=== PATIENT | female | born 1970 | race Caucasian/White ===

== ENCOUNTER 2017-01-27 14:50 | Emergency (ER) | payer BC ==
[~2017-01-27] VITALS: Ht 157.5 cm; Wt 76.7 kg
[~2017-01-27 14:50] MED LIST: BACTRIM DS 8001 TA1 PO; CIPROFLOXACIN500 MG PO; FIORICET 325 MG1 TAB PO; FLEXERIL10 M1 PO; LORTAB 5/500 501 TAB PO; PERCOCET 5/3251 EACH PO; PHENERGAN 25MG.25 M1 PO; PREMARIN1.25 MG PO; VICODIN 7.5/501 EACH PO; ZOFRAN ODT4 MG PO
[2017-01-27] MEDS ORDERED: FLONASE 50 MCG16 GM (15:16)
[2017-01-27] MEDS ORDERED: PREDNISONE 20MG20 MG PO (15:16)
[2017-01-27] MEDS ORDERED: DOXYCYCLINE HY100 M4 PO (15:16)
[2017-01-27 15:17] VITALS: BP 146/96
--- NOTE | 2017-01-27 15:17 | [facility] Report ---
History of Present Issue Date/Time Seen by Provider 01/27/17 1500 Visit Reason Pt arrived:Walked Presenting Problem:PT STATES HEAD CONGESTION, EAR PAIN AND HOARSENESS THAT BEGAN ON MONDAY Location if Accident: Onset of symptoms date/time:/ or onset unknown for:MEDICAL HX UNKNOWN Have you (or family members/close friends) recently traveled outside the [place]? N If Yes, where/when: Have you had exposure to infectious disease within the past month? TB? Other? Specify: c/o head congestion. Symptoms started w/ scratchy ears over one week ago. Head congestion and ear pressure started several days later on Monday, 6 days ago. Since then, each day symptoms have been worse and more symptoms each day. Now rhinorrhea, nasal congestion, ear pressure, headaches, sinus pressure, hoarse and mild cough. 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 No fevers. Does report a hx of borderline BP at beginning and end of each school year. reports her and Dr. Stoner have been monitoring it. Typically stress related and over summer break, BP normal. pt works as a director within the school system. Source patient Exam Limitations no limitations ALLERGIES Coded Allergies: Penicillins (01/27/17) codeine (01/27/17) morphine (01/27/17) Home Medications Reported Medications Conjugated Estrogens (Premarin) 1 TAB PO DAILY History Medical History General CAD? No Angina: No [place]: No Hypertension? Yes Hyperlipidemia? No CHF? No DVT? No PE? No COPD? No Asthma? No Anemia? No GERD? No Gastric ulcers? No GI Bleed? No Hernia? No Thyroid Problems? No Hypothyroidism? No CVA? No Seizures? No Diabetes? No Renal Insuffiency? No UTI? Yes Stones? No BPH? No GB Disease: No Nephritic Syndrome? No Asplenia? No Hepatitis? No Sickle Cell Disease? No Arthritis? No Migraines? No Cataracts? No Glaucoma? No MRSA? No HIV? No TB? No Anxiety? No Depression? No Cancer? No Immunization HX DT/Tetanus > 10 YRS Flu LAST YEAR Pneumonia NEVER Surgical Hx Previous Surgery?Y X 2 D&C X2 LT. KNEE REPAIR BREAST REDUCTION WISDOM TEETH LT OVARY/FALLOPIAN TUBE HYSTERECTOMY 2010 Family History Family HX Diabetes No CAD Yes Hypertension Yes Hyperlipidemia No Cancer Yes TB No Social History Smoking Hx Smoker: Never Smoker Tobacco: No Packs/day N/A Alcohol Alcohol: No Review of Systems All Other Systems Reviewed and Negative Constitutional see HPI, malaise Eyes denies drainage ENT see HPI. denies: ear discharge, throat swelling. Respiratory see HPI, denies shortness of breath, denies wheezing Cardiovascular denies chest pain Gastrointestinal denies no symptoms reported Skin denies lesions, denies lumps, denies rash Psychiatric/Neurological headache ("primarily pressure") Physical Exam Vital Signs Vital Signs Date Time Temp Pulse Resp B/P Pulse O2 O2 Flow FiO2 Ox Delivery Rate 01/27 1517 97.9 87 20 146/96 100 01/27 1458 97.9 87 20 146/96 100 General Appearance normal appearance, no apparent distress Eye Exam - bilateral eye normal exam Ear, Nose, Throat nasal congestion, indu EACs normal, indu TMs normal except serous fluid causing mild TM bulging bilaterally, turbinates swollen, moderate maxillary sinus pressure bilaterally, mild frontal sinus pressure, thick purulent nasal drainage Neck non-tender, supple Respiratory Status No: respiratory distress, productive cough, non productive cough. Lung Sounds anterior: lungs clear. posterior: lungs clear. bilateral: lungs clear. Cardiovascular regular rate/rhythm, no peripheral edema, no murmur Neurologic alert, oriented x 3 Skin normal color, warm/dry Lymphatic no adenopathy Medical Decision Making LABS/Meds/Orders Pt receiving controlled substance in ED? No Departure Departure Time of Disposition 1513 Disposition DC Home or Self Care(routine) Clinical Impression Primary Impression: Acute sinusitis Qualifiers: Sinusitis location: maxillary Recurrence: non-recurrent Qualified Code: J01.00 - Acute maxillary sinusitis, unspecified Condition STABLE Referrals Georgiana CARLTON,Ricardo (Family) IMMEDIATELY for new or worsening symptoms OR no noticeable improvement over the next 48-72 hours. 911 for difficulty breathing or swallowing. Patient Instructions DI for Sinusitis Additional Instructions * Start antibiotic and be sure to take as ordered for the FULL length of time even if you feel better. Sinus infections do not get better overnight. It may take 2-3 days to notice much improvement so be sure to use conservative measures as discussed for symptoms. * OK to continue Sudafed but monitor your Blood pressure as it can cause it to elevate more. * Start steroid today. Helps with inflammation therefore, cough and pressure. Follow directions on package. Rvwd side effects. Pt reports they have taken them before. * Flonase 2 sprays each nostril daily to help with nasal congestion, sinus and ear pressure/inflammation * Lots of fluids * Sleep elevated * Humidifier/vaporizer Discharge Counseling Counseled pt/family regarding diagnosis, medications/RX, home care, follow up needs Prescriptions Current Visit Scripts Doxycycline Hyclate (Vibramycin) 100 MG PO BID #20 CAP Prednisone (Prednisone 20MG) 20 MG PO BID #8 TAB Fluticasone Propionate (Flonase 50 Mcg Nasal [place]) 2 SPRAY NA DAILY #1 BOT at 1546
== END 2017-01-27 15:19 | disposition home or self-care (01) ==
LOC: UTC 14:50
DX: J01.00 Acute maxillary sinusitis, unspecified (principal); I10 Essential (primary) hypertension; Z79.890 Hormone replacement therapy; Z88.5 Allergy status to narcotic agent; Z88.0 Allergy status to penicillin